=== PATIENT | male | born 1945 | race African-American/Black ===

== ENCOUNTER 2018-11-13 08:17 | Emergency (ER) | payer MEDICARE, MEDICAID | END 2018-11-13 09:49 | disposition home or self-care (01) | LOC: ERS 08:17 | DX: M25.562 Pain in left knee (principal); F41.9 Anxiety disorder, unspecified | CPT/HCPCS: 99283 ==

== ENCOUNTER 2019-11-10 19:53 | Emergency (ER) | payer MEDICARE, MEDICAID ==
[2019-11-10] MEDS ORDERED: Ketorolac Tromethamine 30 MG/ML VIAL ONE (20:49)
[2019-11-10] MEDS ORDERED: Lidocaine 1% w/Epinephrine 1:100K 20 ML VIAL ONE (20:51)
[2019-11-10] MEDS ORDERED: Morphine 4 MG/ML VIAL ONE (20:51)
--- NOTE | 2019-11-10 20:51 | RAD ---
LEFT KNEE FOUR VIEWS: History: Knee pain Comparison: Radiograph, 2018 FINDINGS: There is a large joint effusion. Intact left knee arthroplasty. No acute fracture. IMPRESSION: Large joint effusions may reflect superimposed infection. Aspiration recommended if clinically warran monique. POS: HOME
[2019-11-10 21:37] LABS: #Eosinphils 0.2 thou/uL (0.0-0.7); #Lymphocytes 2.6 thou/uL (1.20-3.40); #Monocytes 1.1 thou/uL (0.11-0.59); %Basophils 0.2 % (0.0-1.0); %Eosinophils 1.9 % (0.0-10.0); %Lymphocytes 29.3 % (21.0-51.0); %Monocytes 12.6 % (0.0-10.0); %Neutrophils 55.9 % (42.0-75.0); Hemoglobin 13.9 g/dL (14.0-18.0); Mean Corpuscular Hemoglobin 30.4 pg (27.0-31.0); Mean Platelet Volume 8.4 fL (7.4-10.4); Platelet Count 197 thou/uL (130-400); RBC Distribution Width 13.6 % (11.5-14.5); Red Blood Cell (RBC) Count 4.57 mill/uL (4.70-6.10); White Blood Cell (WBC) Count 8.9 thou/uL (4.8-10.8)
[2019-11-10 22:00] LABS: ALT (SGPT) 18 U/L (8-55); AST (SGOT) 19 U/L (5-34); Albumin 3.6 g/dL (3.4-4.8); Alkaline Phosphatase 85 U/L (40-110); Anion Gap 9 mmol/L (10-20); BUN (Urea Nitrogen) 14 mg/dL (8.4-25.7); Bilirubin, Total 0.4 mg/dL (0.2-1.2); Calc. Creatinine Clearance 0 mL/min (70-130); Calcium 8.7 mg/dL (7.8-10.44); Carbon Dioxide 26 mmol/L (23-31); Chloride 107 mmol/L (98-107); Estimated GFR-MDRD 89; Globulin 2.8 g/dL (2.4-3.5); Glucose 64 mg/dL (83-110); Potassium 3.8 mmol/L (3.5-5.1); Protein, Total 6.4 g/dL (5.8-8.1); Sodium 138 mmol/L (136-145)
[2019-11-10 22:30] LABS: RBC Count-Automated (BF) 157616 /cu.mm; WBC/Nucleated-Auto (BF) 7632 uL
[2019-11-10 22:33] LABS: BF Color Red; Body Fluid Source Synovial Fluid; Clarity Cloudy/Turbid (Clear); Tube # 1
[2019-11-10 22:37] LABS: BF Segmented Neutrophils 93 %; Cell Count Non Hematic 3 %; Lymphocytes 4 %
== END 2019-11-10 23:45 | disposition home or self-care (01) ==
LOC: ERS 19:53
DX: M25.062 Hemarthrosis, left knee (principal); I10 Essential (primary) hypertension; F41.9 Anxiety disorder, unspecified; Z79.899 Other long term (current) drug therapy
CPT/HCPCS: 20610; 36415; 80053; 85025; 85060; 85652; 86140; 87070; 87205; 89051; 89060; 96372; J1885; J2270

== ENCOUNTER 2019-11-15 19:38 | Emergency (ER) | payer MEDICARE, MEDICAID ==
[2019-11-15] MEDS ORDERED: Morphine 4 MG/ML VIAL ONE (20:14)
== END 2019-11-15 22:29 | disposition home or self-care (01) ==
LOC: ERS 19:38
DX: M25.462 Effusion, left knee (principal); I10 Essential (primary) hypertension; F41.9 Anxiety disorder, unspecified; M25.562 Pain in left knee
CPT/HCPCS: 96372; 99283; J2270

== ENCOUNTER 2019-12-05 21:00 | Emergency (ER) | payer MEDICARE, MEDICAID ==
[2019-12-05] MEDS ORDERED: Morphine 4 MG/ML VIAL ONE (22:25)
== END 2019-12-05 23:01 | disposition home or self-care (01) ==
LOC: ERS 21:00
DX: M25.462 Effusion, left knee (principal); M25.562 Pain in left knee; F41.9 Anxiety disorder, unspecified; I10 Essential (primary) hypertension; Z79.899 Other long term (current) drug therapy
CPT/HCPCS: 96372; 99283; J2270

== ENCOUNTER 2020-02-23 21:04 | Inpatient (IN) | payer MEDICARE, MEDICAID, OTHER ==
[2020-02-23 21:39] LABS: #Basophils 0.1 thou/uL (0.0-0.2); #Eosinphils 0.3 thou/uL (0.0-0.7); #Lymphocytes 2.7 thou/uL (1.20-3.40); #Monocytes 0.9 thou/uL (0.11-0.59); #Neutrophils 5.9 thou/uL (1.40-6.50); %Basophils 0.8 % (0.0-1.0); %Eosinophils 2.8 % (0.0-10.0); %Lymphocytes 27.2 % (21.0-51.0); %Monocytes 9.3 % (0.0-10.0); %Neutrophils 59.9 % (42.0-75.0); Hemoglobin 14.1 g/dL (14.0-18.0); Mean Corpuscular HGB CONC 32.5 g/dL (32.0-36.0); Mean Corpuscular Hemoglobin 30.5 pg (27.0-31.0); Mean Corpuscular Volume 93.8 fL (78.0-98.0); Mean Platelet Volume 8.6 fL (7.4-10.4); Platelet Count 212 thou/uL (130-400); RBC Distribution Width 13.8 % (11.5-14.5); Red Blood Cell (RBC) Count 4.64 mill/uL (4.70-6.10); White Blood Cell (WBC) Count 9.9 thou/uL (4.8-10.8)
--- NOTE | 2020-02-23 21:42 | RAD ---
LEFT KNEE FOUR VIEWS: Date: 02-23-2020 History: Fall, trauma, pain FINDINGS: There is a left total knee arthroplasty. No knee joint effusion, fracture, or dislocation. IMPRESSION: No acute osseous abnormality. POS: OFF
--- NOTE | 2020-02-23 21:49 | RAD ---
FOUR VIEWS RIGHT KNEE: Date: 02-23-2020 Comparison: None History: Fall, trauma, pain. FINDINGS: There is a total knee arthroplasty on the right. There is a knee joint effusion on the right. There i s osseous fragmentation with corticated margins involving the superior aspect of the patella, suggest ing prior patellar fracture. However, there may be an acute patellar fracture as well, seen on image 2 of 4, vertically oriented along the superior margin of the superior most patellar fracture. Correla tion for point tenderness in this region is required. No evidence for acute fracture involving the im aged femur, tibia or fibula. IMPRESSION: Knee joint effusion. Possible acute fracture involving the superior most aspect of the patella as det isak above. POS: OFF
--- NOTE | 2020-02-23 22:18 | CT ---
Head CT without contrast 02/23/2020: COMPARISON: 11/12/2012 HISTORY: Dizzy, falls TECHNIQUE: Axial CT imaging at 5 mm intervals from vertex through skull base without contrast FINDINGS: Imaged paranasal sinuses and mastoid air cells appear well aerated. No displaced calvarial fracture. No intracranial hemorrhage, midline shift, or mass effect. Significant periventricular, deep, and subcortical white matter hypodensity noted, evidence of small vessel disease. IMPRESSION: No acute findings.
[2020-02-23 22:39] LABS: Albumin 3.8 g/dL (3.4-4.8)
[2020-02-23 22:41] LABS: Calcium 8.6 mg/dL (7.8-10.44); Chloride 110 mmol/L (98-107); Potassium 3.8 mmol/L (3.5-5.1); Sodium 141 mmol/L (136-145)
[2020-02-23 22:42] LABS: Globulin 2.9 g/dL (2.4-3.5); Glucose 110 mg/dL (83-110); Protein, Total 6.7 g/dL (5.8-8.1)
[2020-02-23 22:44] LABS: Anion Gap 10 mmol/L (10-20); Bilirubin, Total 0.4 mg/dL (0.2-1.2); Carbon Dioxide 25 mmol/L (23-31)
[2020-02-23 22:45] LABS: Alkaline Phosphatase 93 U/L (40-110); Calc. Creatinine Clearance 0 mL/min (70-130); Estimated GFR-MDRD 64
[2020-02-23 22:46] LABS: BUN (Urea Nitrogen) 20 mg/dL (8.4-25.7)
[2020-02-23 22:47] LABS: AST (SGOT) 26 U/L (5-34)
[2020-02-23 22:48] LABS: ALT (SGPT) 38 U/L (8-55)
[2020-02-23] MEDS ORDERED: Morphine 4 MG/ML VIAL ONE (23:06)
[2020-02-24 00:24] LABS: Bilirubin Negative (Negative); Blood, Urine Negative (Negative); Clarity Clear (Clear); Glucose, Urine (Dipstick) Normal (Negative); Ketone, Urine Negative (Negative); Leukocyte Negative Leu/uL (Negative); Nitrite Negative (Negative); Protein, Urine (Dipstick) Negative (Neg-Trace); Urobilinogen Normal mg/dL (Less than 2)
[2020-02-24] MEDS ORDERED: Lorazepam 2 MG/ML VIAL ONE (00:55)
[2020-02-24 01:49] VITALS: BMI 31.6
[2020-02-24] MEDS ORDERED: traMADol HCl 50 MG TAB PO SCH (03:30)
[2020-02-24] MEDS: Morphine 2 MG/ML VIAL SLOW IVP PRN ×4 (06:10→21:17)
[2020-02-24] MEDS ORDERED: Aspirin 81 mg Enteric Coated Tablet PO SCH (09:00)
--- NOTE | 2020-02-24 09:21 | MRI ---
MRI BRAIN WITHOUT CONTRAST: HISTORY: Stroke. Dizziness and falls COMPARISON: 07/21/2012 CORRELATION: CT scan from 02/23/2020. FINDINGS: No restricted diffusion is seen. There are multiple foci of T2 prolongation in the periventricular wh ite matter, consistent with chronic small vessel ischemic disease. The ventricular size is appropriate and the basilar cisterns are patent. No evidence of acute infarct, hemorrhage, midline shift or abnormal extra-axial fluid collections is seen. There is minimal mucosal disease in the paranasal sinuses. IMPRESSION: No evidence of acute intracranial process.
[2020-02-24] MEDS: Aspirin 325 mg Enteric Coated Tablet PO SCH (09:23)
[2020-02-24] MEDS: Heparin 5,000 UNITS/ML VIAL SC SCH ×2 (09:23→21:18)
--- NOTE | 2020-02-24 10:04 | HP ---
REASON FOR ADMISSION: Difficulty with ambulation, frequent falls. HISTORY OF PRESENT ILLNESS: This is a 74-year-old male patient, who is somewhat of a poor historian. He presents to the ER after a fall and complained of right knee pain. When I see him, he tells me that he has been off balance for the last 4 months. He reports the pain in his right knee, asking for pain medication other than tramadol. He says that he sometimes feels that he is dizzy and the room is spinning around him and sometimes if he is off balance. Otherwise, he does not elaborate much about his symptoms. I did review his records and he did present to the ER in November on multiple occasions for left knee pain. It was at some point documented that he had multiple prescription for opiates. In 2012, he was documented as having polysubstance abuse. PAST MEDICAL HISTORY: Left knee replacement done in [place], [place]. Per records from a discharge summary in 2012, it seems that he has history of: 1. High blood pressure. 2. Gout. 3. Acute kidney injury. 4. Schizoaffective disorder. PAST SURGICAL HISTORY: Laparotomy for bleeding ulcers. ALLERGIES: PENICILLIN CAUSES HIM HIVES. SOCIAL HISTORY: He does smoke. He does not drink alcohol. FAMILY HISTORY: Negative for premature coronary artery disease. REVIEW OF SYSTEMS: All systems reviewed except the above mentioned, found to be negative. PHYSICAL EXAMINATION: GENERAL: Awake, alert, oriented, does not appear in distress. VITAL SIGNS: His blood pressure is 133/57, heart rate of 79, saturating on room air, temperature is 97.9. HEENT: Head is nontraumatic, normocephalic. Pupils equal, reactive. Extraocular movements are intact. Nonicteric sclerae. Well injected conjunctivae. Oral mucosa normal. Nasal mucosa normal. NECK: Supple. No adenopathy. No murmur. Thyroid is not palpable. Trachea is midline. No supraclavicular adenopathy. HEART: S1, S2 regular. No murmurs. No gallops. No friction rubs. No displacement of PMI. LUNGS: Clear to auscultation bilaterally. No wheezes, rhonchi, or crackles. ABDOMEN: Bowel sounds are positive. Nontender abdomen. No hepatosplenomegaly. EXTREMITIES: No lower extremity edema. No cyanosis. NEURO: Cranial nerves 2 through 12 within normal limits. Normal motor function. Normal sensory function. Normal reflexes. Examination of his right knee reveals slight edema, but not much different from his left knee. It is slightly tender to touch, but there is no limitation of range of motion. LABORATORY DATA: Blood work shows a WBC of , hemoglobin of 14.1, platelets of 212. Sodium 141, potassium 3.8, bicarb of 25, creatinine 1.34, baseline around 1. DIAGNOSTIC AND IMAGING DATA: CT of the brain shows no acute finding. Right knee x-ray shows knee joint effusion, possible acute fracture involving the superior most aspect of the patella. Knee x-ray shows no acute abnormality. EKG shows left bifascicular block. ASSESSMENT AND PLAN: This is a 74-year-old male patient who is presenting with being off balance. He became lightheaded, fell on the ground, called his neighbor, brought to the ER. It seems that he has episodes of multiple falls. Complains of right knee pain. He possibly has patellar fracture. Neuro. Patient will be admitted and monitored on telemetry and we will do an MRI to rule out any central etiology for his frequent falls. We will also practice permissive hypertension and he will be on full dose aspirin. For deep vein thrombosis prophylaxis, he will be on heparin subcutaneously. For his right knee, we did consult Orthopedic Surgery for further input. We will have Physical Therapy to assess him. For his pain, he will be on IV morphine on as-needed basis, also tramadol. I did discuss with him his code status, he wishes to be a full code. Job ID: [id number]
[2020-02-24 13:06] LABS: SARS-CoV-2 MS2 Positive; SARS-CoV-2 N Gene Negative; SARS-CoV-2 S Gene Negative; SARS-CoV-2 by NAA Not Detected (NotDetected); SARS-CoV-2 orf1ab Negative
--- NOTE | 2020-02-24 14:52 | PDOC.EVN ---
Event Note - Event Note Event Note: Doing ok. [place] has some knee pain[place]. Says his balance is poor. He is not sure he can stay there as he is falling frequently. He lives alone. Exam is largely unremarkable. Heart is regular. Lungs are clear. Abdomen benign. Extremities have no significant edema. Currently awaiting evaluations from physical therapy. I did communicate with Ortho and the plan is to use a hinged knee brace. No surgery indicated. Will get OT/PT consults. Discussed with case management for possible need of rehab.
--- NOTE | 2020-02-24 15:49 | CON ---
DATE OF CONSULTATION: REQUESTING PHYSICIAN: Agapito Stoll MD BRIEF HISTORY OF PRESENT ILLNESS: Mr. Bailey is a 74-year-old gentleman, who is examined in his hospital room at [facility] for evaluation of right knee pain. The patient has a past history of bilateral knee arthroplasties with the left knee replaced earlier this year and the right knee replacement done many years ago. Earlier this year, the patient has had emergency room visits for left knee pain; however, he is admitted now on the 23 of February with complaint of increasing right knee pain, ataxia, and history of multiple falls. He is unable to provide me with a single specific fall that created the right knee pain, but states that this most recent fall that he experienced have led to this hospitalization has exacerbated his right knee to the point where it is more uncomfortable. PAST MEDICAL HISTORY: Remarkable for hypertension, renal insufficiency, schizoaffective disorder, as well as gout. PAST SURGICAL HISTORY: Right total knee replacement some years ago as well as left knee replacement earlier this year. Additional surgeries include laparotomy for ulcer disease. MEDICATIONS ON ADMISSION: I will refer you to the medication reconciliation form. ALLERGIES: PENICILLIN. SOCIAL HISTORY: He is a smoker. He denies alcohol. REVIEW OF SYSTEMS: No recent fevers, chills or sweats. He denies current shortness of breath. He denies chest pain. FAMILY HISTORY: Noncontributory for this fracture. PHYSICAL EXAMINATION: VITAL SIGNS: Temperature of 97.9, heart rate of 79, respiratory rate of 16, and blood pressure 133/57. HEENT: Atraumatic and normocephalic. RESPIRATORY: Breathing is nonlabored. PELVIS: His pelvis is stable to compression. EXTREMITIES: The left lower extremity is remarkable for an atraumatic hip, ankle and foot. The knee is remarkable for a well-healed midline anterior knee incision. He is able to hold the knee in full extension with no lag and is able to flex to approximately 105 degrees. The right lower extremity is remarkable for an atraumatic hip, ankle and foot. Distal neurovascular exam is intact. His lower leg compartments are soft and nontender. He has no pain with passive stretch. The knee itself is remarkable for a mild effusion. There is no bruising noted on inspection. He is found to have a well-healed midline anterior knee incision. Palpation of the knee shows a palpable fracture of the patella with a mobile superior fragment. When asked to perform a straight leg raise, he is able to do so with just a 1- or 2-degree lag when lifting the leg up against gravity. He is able to flex his knee to 110 degrees. X-RAYS: Two view x-ray of the left knee is remarkable for a stemmed total knee arthroplasty with no evidence of radiographic loosening. X-ray of the right knee is remarkable for a non-stemmed primary total knee arthroplasty with no evidence of loosening of the femoral or tibial component. The patella is remarkable for a superior pole fracture with approximately 2 cm diastasis; however, there does appear to be some bone between the fragments and it is unclear whether this is bone formation or fracture fragments from the patella fracture. ASSESSMENT: This is a 74-year-old gentleman status post bilateral total knee arthroplasties with now a patella fracture on his left knee, age indeterminate with diastasis. PLAN: Today, I discussed with the patient that our surgical treatments for these patella fractures associated with total knee arthroplasty. I have extremely poor track record with unacceptably high risk for infection, nonunion, hardware failure. I have also discussed with the patient that there is literature showing that these knees can do quite well with nonsurgical management given a period of immobilization in extension to allow for scar tissue formation to help stabilize the quadriceps mechanism. At this time, patient is able to perform a straight leg raise, which is encouraging. We will place him in a brace and proceed with nonsurgical management. I believe all questions have been answered. Once the brace arrives, we will fit it and have it locked in extension and then institute physical therapy. Job ID: [id number]
[2020-02-25] MEDS: Morphine 2 MG/ML VIAL SLOW IVP PRN ×2 (03:00→08:00)
--- NOTE | 2020-02-25 08:50 | CON ---
NEUROLOGY CONSULTATION DATE OF CONSULTATION: 02/24/2020 REASON FOR CONSULTATION: Frequent falls, rule out CVA. HISTORY OF PRESENT ILLNESS: Mr. Chris Bailey is a 74-year-old male, who was admitted after he sustained a fall and complained of right knee pain. The patient is a poor historian and history is obtained from review of the medical records; however, per the patient, he has been off balance for 4 months because of his knee pain. He has been taking pain medication. Per the patient, he has recently started taking morphine and since then he felt more dizzy and had difficulty walking and sustained multiple falls. On review of the records, he was documented to have polysubstance abuse and there was a concern about polysubstance abuse in 2012 and he had multiple prescriptions of opiates. The patient denies focal weakness, focal paresthesias, nausea, vomiting, headache, chest pain, abdominal pain, loss of vision, loss of consciousness, problems with speech or swallowing, involuntary or abnormal body movements, or recent exposure to COVID. REVIEW OF SYSTEMS: All 14 systems were reviewed and were negative except the pertinent positives and negatives mentioned in the HPI. PAST MEDICAL HISTORY: Hypertension, gout, acute kidney injury, schizoaffective disorder. PAST SURGICAL HISTORY: Left knee replacement, laparotomy for bleeding ulcers. ALLERGIES: PENICILLIN CAUSES HIVES. SOCIAL HISTORY: The patient denies alcohol or illegal drug use. He does smoke. FAMILY HISTORY: Negative for coronary artery disease. PHYSICAL EXAMINATION: VITAL SIGNS: Blood pressure 130/60, pulse 80, respiratory rate 18. CVS: Regular rate and rhythm. CHEST: Clear. ABDOMEN: Soft. NECK: Supple. NEUROLOGIC: Mental status; the patient is alert and oriented to person, place, and time. Speech is clear. Cranial nerves 2 through 12 intact. Motor; muscle tone and bulk are normal. Strength; moving all 4 extremities equally and symmetrically. Sensory intact. Cerebellar, finger-nose testing intact. Gait deferred due to the patient's safety reason. DATA REVIEWED: I reviewed the MRI of the brain, which was negative for acute intracranial pathology. X-ray of the right knee showed joint effusion and possible acute fracture. ASSESSMENT AND PLAN: A 74-year-old male, who was consulted because of multiple falls. He does have a patellar fracture, which is contributed to fall. The patient's MRI of the brain reviewed, which is negative for acute intracranial process or stroke. Continue pain management for the right knee pain; however, his medication should be adjusted since overuse of pain medication is causing him dizziness and resulting in further falls. Neuro checks every 4 hours. Continue home medications. Continue medical management per Primary Team. No further recommendations from Neurology perspective. Thank you for the consult. Job ID: [id number] MTDD
[2020-02-25 09:22] VITALS: BP 143/81; TEMP 97.4
[2020-02-25] MEDS: Aspirin 325 mg Enteric Coated Tablet PO SCH (09:24)
[2020-02-25] MEDS: Heparin 5,000 UNITS/ML VIAL SC SCH (09:24)
--- NOTE | 2020-02-27 06:44 | DIS ---
DATE OF ADMISSION: 02/24/2020 DATE OF DISCHARGE: 02/25/2020 DISCHARGE DIAGNOSES: 1. Recurrent falls. 2. Right knee pain. 3. Right patellar fracture. 4. History of polysubstance abuse. HISTORY OF PRESENT ILLNESS: This patient is a 74-year-old male, who presented to the emergency department reporting knee pain indicating a fall injury. The patient was requesting pain medications in the emergency department. He had a negative CT, negative MRI of the brain. X-rays of both knees indicated possible patellar fracture of the right knee. HOSPITAL COURSE: The patient was admitted, given some pain medications. He was seen in consultation by Ortho, who opted not to pursue surgical intervention in favor of conservative approach with right knee brace. The next time I saw the patient, he was walking around the hospital near the front door, appeared to be doing just fine. He subsequently was seen in consultation by Neurology, who is concerned that his falls are related to substance abuse with history of prescription medication utilization that appeared to be somewhat excessive. He was felt to be stable for discharge to home as he was not going to qualify for any type of rehab. Plan was for home health with home physical therapy. Again, the patient requested pain medications, however, when researching him on the [place] [employer], it was clear the patient had very high score and had received controlled substances from 25 different providers over the past two years. I presented the patient with that information and explained to him that I would not be prescribing him any additional pain medications at this time as there were too many potential red flags. The patient reported that he had been having pain in his right knee for the past two years and that is why he was prescribed all of those medications, again casting down on whether this patellar fracture was new or old. PHYSICAL EXAMINATION: VITAL SIGNS: On the day of discharge, temperature was 97.4, pulse 74, respirations 20, O2 saturation 99% on room air, and BP was 143/81. GENERAL: He was awake and alert. HEART: Regular. LUNGS: Clear. ABDOMEN: Benign. EXTREMITIES: There was no cyanosis, clubbing, or edema. A hinged knee brace on the right lower extremity. DISPOSITION: The patient is discharged to home. ACTIVITY: As tolerated. He will wear the hinged knee brace on the right, have a regular diet and he will have home PT. MEDICATIONS: 1. Zyprexa 20 mg daily. 2. Ibuprofen 800 mg t.i.d. 3. Aspirin 325 mg a day. 4. Colchicine 0.6 b.i.d. 5. Gabapentin 300 mg t.i.d. 6. Nitroglycerin p.r.n. 7. Ambien 5 mg at bedtime p.r.n. 8. Remeron 30 mg at bedtime. 9. Ativan 1 mg b.i.d. 10. Oxcarbazepine 600 mg at bedtime. 11. Amlodipine 1 p.o. daily. 12. Atorvastatin 40 mg daily. 13. Enalapril 20 mg b.i.d. 14. Tamsulosin 0.4 mg daily. He is encouraged to discontinue the clonazepam as it is duplicative and certainly could be contributing to his fall issues. He is to have [facility] and he is to follow up with Dr. Sunshine with a note indicating that the patient should be considered for weaning of multiple sedating medications, potentially contributing to his falls. He can follow up with Dr. Gtz as needed. TIME SPENT: Time spent in discharge activities was greater than 40 minutes. The patient was admitted inpatient. It seems as though this was based on information from the patient that may have been somewhat misleading at that time based on the acuity of his injury. Job ID: [id number] [facility]
--- NOTE | 2020-02-28 12:21 | EKG ---
Test Reason : Blood Pressure : / mmHG Vent. Rate : 082 BPM Atrial Rate : 082 BPM P-R Int : 140 ms QRS Dur : 132 ms QT Int : 398 ms P-R-T Axes : 054 134 034 degrees QTc Int : 464 ms Normal sinus rhythm Right bundle branch block , plus right ventricular hypertrophy Left posterior fascicular block Bifascicular block Abnormal ECG Confirmed by TALI ANGEL ([id number]), editor farm journal MAVIS COKER ([id number]) on 02/28/2020 12:21:34 PM Referred By: Confirmed By:TALI ANGEL
== END 2020-02-25 10:21 | disposition home or self-care (01) | DRG 563 ==
LOC: ERS 21:04 → 2NO 23:55 → UNDOADMIN 02-24 → 2NO 02-24 → T4-B 02-24 18:09 → UNDODISIN 02-25 10:21
PROVIDERS: ADMIT Internal Medicine; ATTEND Internal Medicine
DX: S82.001A Unspecified fracture of right patella, initial encounter for closed fracture (principal); Z20.828 Contact with and (suspected) exposure to other viral communicable diseases; W19.XXXA Unspecified fall, initial encounter; F25.9 Schizoaffective disorder, unspecified; M10.9 Gout, unspecified; N40.0 Benign prostatic hyperplasia without lower urinary tract symptoms; F41.9 Anxiety disorder, unspecified; F17.210 Nicotine dependence, cigarettes, uncomplicated; M25.461 Effusion, right knee; Z96.653 Presence of artificial knee joint, bilateral; I10 Essential (primary) hypertension; Z88.0 Allergy status to penicillin
CPT/HCPCS: 36415; 70450; 70551; 80053; 81003; 84484; 85025; 87635; 93005; 96361; 96374; 96375; J1644; J2060; J2270; L1832; U0003

== ENCOUNTER 2020-03-25 16:42 | Emergency (ER) | payer MEDICARE, MEDICAID ==
--- NOTE | 2020-03-25 18:04 | RAD ---
PORTABLE CHEST: 03/25/20 HISTORY: Elevated blood pressure. COMPARISON: 12/11/12 study. Heart size and mediastinum are within normal limits. The lungs are clear of infiltrates. No significa nt bony findings. IMPRESSION: No active intrathoracic disease. POS: MONI
[2020-03-25 18:20] LABS: #Eosinphils 0.2 thou/uL (0.0-0.7); #Lymphocytes 1.5 thou/uL (1.20-3.40); #Monocytes 0.9 thou/uL (0.11-0.59); #Neutrophils 5.3 thou/uL (1.40-6.50); %Basophils 0.4 % (0.0-1.0); %Eosinophils 2.9 % (0.0-10.0); %Lymphocytes 19.3 % (21.0-51.0); %Monocytes 10.6 % (0.0-10.0); %Neutrophils 66.8 % (42.0-75.0); Hemoglobin 14.3 g/dL (14.0-18.0); Mean Corpuscular HGB CONC 32.2 g/dL (32.0-36.0); Mean Corpuscular Volume 92.9 fL (78.0-98.0); Mean Platelet Volume 8.4 fL (7.4-10.4); Platelet Count 221 thou/uL (130-400); RBC Distribution Width 13.4 % (11.5-14.5); Red Blood Cell (RBC) Count 4.78 mill/uL (4.70-6.10)
[2020-03-25 18:39] LABS: ALT (SGPT) 31 U/L (8-55); AST (SGOT) 29 U/L (5-34); Albumin 3.8 g/dL (3.4-4.8); Alkaline Phosphatase 76 U/L (40-110); Anion Gap 14 mmol/L (10-20); BUN (Urea Nitrogen) 18 mg/dL (8.4-25.7); Bilirubin, Total 0.4 mg/dL (0.2-1.2); CK (CPK) 210 U/L (30-200); Calc. Creatinine Clearance 0 mL/min (70-130); Calcium 9.1 mg/dL (7.8-10.44); Carbon Dioxide 20 mmol/L (23-31); Chloride 111 mmol/L (98-107); Estimated GFR-MDRD 74; Globulin 3.1 g/dL (2.4-3.5); Glucose 111 mg/dL (83-110); Lipase 20 U/L (8-78); Potassium 3.4 mmol/L (3.5-5.1); Protein, Total 6.9 g/dL (5.8-8.1); Sodium 142 mmol/L (136-145)
--- NOTE | 2020-04-17 13:08 | EKG ---
Test Reason : Blood Pressure : / mmHG Vent. Rate : 086 BPM Atrial Rate : 086 BPM P-R Int : 140 ms QRS Dur : 132 ms QT Int : 396 ms P-R-T Axes : 057 146 025 degrees QTc Int : 473 ms Normal sinus rhythm Possible Left atrial enlargement Right bundle branch block Abnormal ECG No change from 02/23/2020 Confirmed by RONNIE WILKINS DO ([id number]), video news editor MAVIS COKER ([id number]) on 04/17/2020 1:07:54 PM Referred By: Confirmed By:RONNIE WILKINS DO
== END 2020-03-25 19:55 | disposition home or self-care (01) ==
LOC: ERS 16:42
DX: R42 Dizziness and giddiness (principal); I10 Essential (primary) hypertension; N40.0 Benign prostatic hyperplasia without lower urinary tract symptoms; F41.9 Anxiety disorder, unspecified; F17.210 Nicotine dependence, cigarettes, uncomplicated; Z76.0 Encounter for issue of repeat prescription
CPT/HCPCS: 36415; 71045; 80053; 82550; 83690; 84484; 85025; 93005

== ENCOUNTER 2020-06-22 21:58 | Emergency (ER) | payer MEDICARE, MEDICAID ==
[~2020-06-22 21:58] MED LIST: Iopamidol-370 76% 500 ML 1 ML ONE
--- NOTE | 2020-06-22 22:28 | RAD ---
Portable frontal chest radiograph: 06/22/2020 COMPARISON: 03/25/2020 HISTORY: Cough with shortness of breath FINDINGS: There is stable prominence of the cardiac silhouette. No pneumothorax, focal consolidation, or alveolar edema. Mild linear density noted in the right lung base which could represent volume loss, vascular structures, or mild infiltrate. IMPRESSION: Mild increased linear density in the right lung base. No focal consolidation or alveolar edema.
[2020-06-22] MEDS ORDERED: Morphine 4 MG/ML VIAL ONE (22:42)
[2020-06-22 22:53] LABS: Hemoglobin 14.5 g/dL (14.0-18.0); Mean Corpuscular HGB CONC 32.7 g/dL (32.0-36.0); Mean Corpuscular Hemoglobin 29.7 pg (27.0-31.0); Mean Corpuscular Volume 90.9 fL (78.0-98.0); Mean Platelet Volume 8.3 fL (7.4-10.4); Platelet Count 247 thou/uL (130-400); RBC Distribution Width 13.4 % (11.5-14.5); White Blood Cell (WBC) Count 7.9 thou/uL (4.8-10.8)
[2020-06-22 23:13] LABS: Band 1 % (5-11); Eosinophils 3 % (0-10); Lymphocytes 32 % (21-51); MDiff Complete? YES; Monocytes 14 % (0-10); Neutrophil 48 % (42-75); Platelet Morphology Comment Appears Adequate; RBC Morphology Normal; Reactive Lymphocytes 2 % (0-10)
[2020-06-22 23:15] LABS: ALT (SGPT) 13 U/L (8-55); AST (SGOT) 19 U/L (5-34); Albumin 3.7 g/dL (3.4-4.8); Alkaline Phosphatase 90 U/L (40-110); Anion Gap 13 mmol/L (10-20); BUN (Urea Nitrogen) 21 mg/dL (8.4-25.7); Bilirubin, Total 0.4 mg/dL (0.2-1.2); Calc. Creatinine Clearance 0 mL/min (70-130); Calcium 8.5 mg/dL (7.8-10.44); Carbon Dioxide 24 mmol/L (23-31); Chloride 110 mmol/L (98-107); Globulin 2.8 g/dL (2.4-3.5); Glucose 92 mg/dL (83-110); Potassium 3.9 mmol/L (3.5-5.1); Protein, Total 6.5 g/dL (5.8-8.1); Sodium 143 mmol/L (136-145)
[2020-06-23] MEDS ORDERED: Ketorolac Tromethamine 30 MG/ML VIAL ONE (01:49)
[2020-06-23 06:18] LABS: SARS-CoV-2 MS2 Positive; SARS-CoV-2 N Gene Negative; SARS-CoV-2 S Gene Negative; SARS-CoV-2 by NAA Not Detected (NotDetected); SARS-CoV-2 orf1ab Negative
[2020-06-23 06:50] LABS: Troponin I 0.013 ng/mL (< 0.028)
--- NOTE | 2020-06-23 07:25 | CT ---
PRELIMINARY REPORT/[facility]/EMERGENCY AFTER HOURS PROCEDURE: EXAM: CTA Chest with Intravenous Contrast CLINICAL HISTORY: 75-year-old male with history of hypertension presenting with a cough some shortnes s of breath and chest pain with his cough. Patient is noting some mild chest pain with the cough as well. Patient denies any history of cardiac disease but does endorse a history of hypertension. TECHNIQUE: Axial CTA images of the chest with intravenous contrast. Three-dimensional MIP/volume rend ered reformations were performed. CONTRAST: With; ISOVUE 370; 60mL COMPARISON: None provided. FINDINGS: PULMONARY ARTERIES There is no intraluminal filling defect suspicious for PE. AORTA No thoracic aortic aneurysm or dissection. LUNGS Emphysema. No pulmonary masses or concerning pulmonary nodules. No significant airspace disease identified. PLEURAL SPACES No pleural effusion. No pneumothorax. HEART AND MEDIASTINUM Heart appears mildly enlarged. No pericardial effusion. LYMPH NODES No lymphadenopathy. BONES No focal osseous abnormality or acute fracture. CHEST WALL AND UPPER ABDOMEN Numerous hepatic cysts are present. No solid liver masses identified. Cy sts noted within the right kidney. The visible upper abdomen is otherwise unremarkable. No focal abnormalities of the chest wall. IMPRESSION: No PE visualized. Emphysema. See above for additional findings. ELECTRONICALLY SIGNED BY: Dwayne Marquis DO Jun 23, 2020 12:32:42 AM PAIL TESTER FINAL REPORT CT ANGIOGRAM OF THE CHEST: HISTORY: Shortness of breath. Hypertension. Cough. COMPARISON: None. TECHNIQUE: CT angiogram of the chest is performed in the axial plane. Three-dimensional reformatted images are s ubmitted for interpretation FINDINGS: Mediastinum: No mass, lymphadenopathy or hematoma. Heart: Normal size. No significant pericardial fluid. Aorta: No aneurysm or dissection . Upper solid abdominal viscera: No abnormality enhancement. Multiple hepatic cysts are identified. Trachea and central bronchi: Patent. Pleural spaces: No effusion. Lung parenchyma: No masses or consolidation. Scattered scarring and atelectasis. Pneumothorax: None. Osseous structures: No lytic or blastic lesions. Pulmonary arteries: Adequate contrast opacification pulmonary arterial system to the level of lobar a rteries. Evaluation of the segmental and subsegmental arteries is somewhat limited due to patient motion and timing of contrast bolus. No filling defect to suggest pulmonary embolism. IMPRESSION: 1. This report is in agreement with initial report by [facility]. 2. No evidence of pulmonary artery embolism to the level of the lobar arteries. Transcribed Date/Time: 06/23/2020 7:46 AM
--- NOTE | 2020-06-26 11:16 | EKG ---
Test Reason : Blood Pressure : / mmHG Vent. Rate : 087 BPM Atrial Rate : 087 BPM P-R Int : 140 ms QRS Dur : 140 ms QT Int : 404 ms P-R-T Axes : 065 121 048 degrees QTc Int : 486 ms Normal sinus rhythm Right bundle branch block Left posterior fascicular block Bifascicular block Abnormal ECG No change from 02/2020 Confirmed by TALI ANGEL ([id number]), food editor MAVIS COKER ([id number]) on 06/26/2020 11:15:59 AM Referred By: Confirmed By:TALI ANGEL
== END 2020-06-23 02:42 | disposition home or self-care (01) ==
LOC: ERS 21:58
DX: R07.9 Chest pain, unspecified (principal); R05 Cough; R06.02 Shortness of breath; I10 Essential (primary) hypertension; N40.0 Benign prostatic hyperplasia without lower urinary tract symptoms; F17.210 Nicotine dependence, cigarettes, uncomplicated; Z20.822 Contact with and (suspected) exposure to COVID-19; Z79.899 Other long term (current) drug therapy
CPT/HCPCS: 71045; 71275; 80053; 83605; 83880; 84484; 85025; 85379; 93005; U0003; U0005; 87635; 96374; 96375; J1885; J2270; Q9967

== ENCOUNTER 2022-06-28 00:40 | Observation (INO) | payer OTHER ==
[2022-06-28] MEDS ORDERED: Ketorolac Tromethamine 30 MG/ML VIAL ONE (01:37)
[2022-06-28] MEDS ORDERED: Ondansetron PF 4 MG/2 ML Vial ONE (03:02)
[2022-06-28] MEDS ORDERED: Morphine 4 MG/ML VIAL ONE ×4 (03:02→16:03)
[2022-06-28 04:21] LABS: Troponin I Less than 0.010 ng/mL (< 0.028)
[2022-06-28 04:22] LABS: Anion Gap 12 mmol/L (10-20); BUN (Urea Nitrogen) 14 mg/dL (8.4-25.7); Calc. Creatinine Clearance 0 mL/min (70-130); Calcium 9.1 mg/dL (7.6-10.4); Carbon Dioxide 23 mmol/L (23-31); Chloride 107 mmol/L (98-107); Estimated GFR 87; Glucose 100 mg/dL (83-110); Potassium 3.7 mmol/L (3.5-5.1); Sodium 138 mmol/L (136-145)
[2022-06-28 04:23] LABS: AST (SGOT) 20 U/L (5-34); Albumin 3.7 g/dL (3.4-4.8); Alkaline Phosphatase 64 U/L (40-110); Bilirubin, Total 0.7 mg/dL (0.2-1.2); Globulin 3.2 g/dL (2.4-3.5); Protein, Total 6.9 g/dL (5.8-8.1)
[2022-06-28 04:24] LABS: ALT (SGPT) 16 U/L (8-55); Lipase 8 U/L (8-78)
[2022-06-28 04:26] LABS: #Basophils 0.1 thou/uL (0.0-0.2); #Eosinphils 0.2 thou/uL (0.0-0.7); #Monocytes 0.9 thou/uL (0.11-0.59); #Neutrophils 6.9 thou/uL (1.40-6.50); %Basophils 0.6 % (0.0-1.0); %Eosinophils 2.1 % (0.0-10.0); %Lymphocytes 19.6 % (21.0-51.0); %Monocytes 9.4 % (0.0-10.0); %Neutrophils 68.4 % (42.0-75.0); Hemoglobin 15.1 g/dL (14.0-18.0); Mean Corpuscular HGB CONC 33.4 g/dL (32.0-36.0); Mean Corpuscular Hemoglobin 29.9 pg (27.0-31.0); Mean Corpuscular Volume 89.3 fl (78.0-98.0); Mean Platelet Volume 8.3 fL (7.4-10.4); Platelet Count 266 10x3/uL (130-400); RBC Distribution Width 14.4 % (11.5-14.5); Red Blood Cell (RBC) Count 5.05 mill/uL (4.70-6.10)
[2022-06-28] MEDS ORDERED: Acetaminophen 650 MG Suppository PR PRN (04:50)
[2022-06-28] MEDS ORDERED: Ondansetron PF 4 MG/2 ML Vial IVP PRN (04:50)
[2022-06-28] MEDS ORDERED: Ondansetron ODT 4 MG TAB PO PRN (04:50)
[2022-06-28] MEDS ORDERED: Nitroglycerin 0.4 MG TAB (25 Tab Bottle) SL PRN (04:50)
[2022-06-28] MEDS ORDERED: Acetaminophen 325 MG TAB PO PRN (04:50)
[2022-06-28] MEDS: Morphine 4 MG/ML VIAL SLOW IVP PRN ×3 (06:40→16:07)
[2022-06-28 07:22] LABS: Troponin I Less than 0.010 ng/mL (< 0.028)
[2022-06-28 08:04] VITALS: BP 137/79; TEMP 98.4
[2022-06-28 08:36] VITALS: BMI 31.0
[2022-06-28] MEDS ORDERED: Aspirin Chewable 81 MG TAB PO SCH (09:00)
[2022-06-28 09:45] LABS: Troponin I Less than 0.010 ng/mL (< 0.028)
[2022-06-28] MEDS ORDERED: Aspirin 81 mg Enteric Coated Tablet ONE (10:01)
[2022-06-28 10:32] LABS: Magnesium 1.6 mg/dL (1.6-2.6)
[2022-06-28] MEDS ORDERED: Nitroglycerin 0.4 MG TAB (25 Tab Bottle) SL SCH (11:00)
[2022-06-28] MEDS ORDERED: Magnesium 2 GM/50 ML(in water) 2 GM in Premix Bag 1 BAG IVPB SCH (11:00)
[2022-06-28] MEDS ORDERED: Regadenoson 0.4 MG/5 ML SYRINGE ONE (11:05)
[2022-06-28] MEDS ORDERED: Ketorolac Tromethamine 30 MG/ML VIAL IVP SCH (12:00)
[2022-06-28] MEDS ORDERED: Gabapentin 300 MG CAP PO SCH (15:00)
[2022-06-28] MEDS ORDERED: busPIRone HCl 10 MG TAB PO SCH (15:00)
[2022-06-28] MEDS ORDERED: Diazepam 5 MG TAB PO SCH (21:00)
[2022-06-29] MEDS ORDERED: Pregabalin 75 MG CAP PO SCH (09:00)
[2022-06-29] MEDS ORDERED: Tamsulosin HCl 0.4 MG CAP PO SCH (09:00)
[2022-06-29] MEDS ORDERED: Amlodipine 10 MG TAB PO SCH (09:00)
[2022-06-29] MEDS ORDERED: Metoprolol Tartrate 50 MG TAB PO SCH (09:00)
[2022-06-29] MEDS ORDERED: Citalopram 20 MG TAB PO SCH (09:00)
== END 2022-06-28 16:14 | disposition short-term general hospital (02) ==
LOC: ERS 00:40 → ERHOLD 04:14
PROVIDERS: ADMIT Student in an Organized Health Care Education/Training Program; ATTEND Student in an Organized Health Care Education/Training Program
DX: R07.89 Other chest pain (principal); R10.13 Epigastric pain; I11.9 Hypertensive heart disease without heart failure; G62.9 Polyneuropathy, unspecified; F32.A Depression, unspecified; N40.0 Benign prostatic hyperplasia without lower urinary tract symptoms; M25.561 Pain in right knee; J98.11 Atelectasis; F17.210 Nicotine dependence, cigarettes, uncomplicated; F12.10 Cannabis abuse, uncomplicated; I45.10 Unspecified right bundle-branch block; Z87.11 Personal history of peptic ulcer disease; Z79.82 Long term (current) use of aspirin; Z79.899 Other long term (current) drug therapy; Z88.0 Allergy status to penicillin
CPT/HCPCS: 71045; 78452; 83690; 83735; 83880; 84484 ×2; 93005; 93017; 96374; 96375; 99285; A9500; 80053; 84443; 85025; J1650; J1885; J2270; J2405; J2785

== ENCOUNTER 2022-08-17 16:52 | Emergency (ER) | payer OTHER ==
[2022-08-17] MEDS ORDERED: HYDROcodone/Acetaminophen 5/325 mg Tablet ONE (18:43)
[2022-08-17] MEDS ORDERED: Bacitracin 1 PK ONE (18:43)
[2022-08-17] MEDS ORDERED: Ketorolac Tromethamine 30 MG/ML VIAL ONE (18:44)
== END 2022-08-17 18:53 | disposition home or self-care (01) ==
LOC: ERS 16:52
DX: M25.552 Pain in left hip (principal); M25.561 Pain in right knee; M25.562 Pain in left knee; M25.532 Pain in left wrist; W01.0XXA Fall on same level from slipping, tripping and stumbling without subsequent striking against object, initial encounter
CPT/HCPCS: 96372; J1885

== ENCOUNTER 2022-08-22 22:50 | Emergency (ER) | payer OTHER ==
[2022-08-22 23:39] LABS: #Basophils 0.1 thou/uL (0.0-0.2); #Eosinphils 0.3 thou/uL (0.0-0.7); #Lymphocytes 2.2 thou/uL (1.20-3.40); #Monocytes 0.8 thou/uL (0.11-0.59); #Neutrophils 6.3 thou/uL (1.40-6.50); %Basophils 0.8 % (0.0-1.0); %Eosinophils 3.1 % (0.0-10.0); %Lymphocytes 22.4 % (21.0-51.0); %Monocytes 8.7 % (0.0-10.0); Hemoglobin 15.3 g/dL (14.0-18.0); Mean Corpuscular HGB CONC 32.2 g/dL (32.0-36.0); Mean Corpuscular Hemoglobin 29.9 pg (27.0-31.0); Mean Corpuscular Volume 92.8 fl (78.0-98.0); Mean Platelet Volume 8.2 fL (7.4-10.4); Platelet Count 234 10x3/uL (130-400); RBC Distribution Width 13.9 % (11.5-14.5); Red Blood Cell (RBC) Count 5.13 mill/uL (4.70-6.10); White Blood Cell (WBC) Count 9.7 10x3/uL (4.8-10.8)
[2022-08-23] LABS: Acetaminophen Less than 10.0 mcg/mL (10.0-30.0); Alcohol Less than 10 mg/dL (Less than 10); Salicylate Less than 8.0 mg/dL (15.0-30.0)
[2022-08-23 00:13] LABS: Bacteria/HPF None Seen HPF (None Seen); Bilirubin Negative (Negative); Blood, Urine 1+ (Negative); Clarity Clear (Clear); Glucose, Urine (Dipstick) Normal (Negative); Ketone, Urine Negative (Negative); Leukocyte Negative Leu/uL (Negative); Nitrite Negative (Negative); Protein, Urine (Dipstick) 20 mg/dL (Neg-Trace); Specific Gravity, Urine 1.026 (1.002-1.036); Squamous Epithelial None Seen HPF (0-3); Urobilinogen Normal mg/dL (Less than 2)
[2022-08-23 00:19] LABS: Amphetamine Not Detected (NotDetected); Barbiturates Screen Not Detected (NotDetected); Benzodiazepine Screen Not Detected (NotDetected); Cocaine Metabolite Screen Detected (NotDetected); Methadone Not Detected (NotDetected); Methamphetamine Not Detected (NotDetected); Opiate Screen Not Detected (NotDetected); Oxycodone Screen Not Detected (NotDetected); Phencyclidine (PCP) Not Detected (NotDetected); THC/Cannabinoid Screen Detected (NotDetected); Tricyclic Screen Not Detected (NotDetected)
[2022-08-23 04:38] LABS: AST (SGOT) 36 U/L (5-34)
[2022-08-23 04:53] LABS: Albumin 3.7 g/dL (3.4-4.8)
[2022-08-23 04:54] LABS: Chloride 110 mmol/L (98-107); Potassium 3.6 mmol/L (3.5-5.1); Sodium 142 mmol/L (136-145)
[2022-08-23 04:55] LABS: Glucose 98 mg/dL (83-110)
[2022-08-23 04:56] LABS: Globulin 2.7 g/dL (2.4-3.5); Protein, Total 6.4 g/dL (5.8-8.1)
[2022-08-23 04:57] LABS: Anion Gap 14 mmol/L (10-20); Bilirubin, Total 0.3 mg/dL (0.2-1.2); Carbon Dioxide 22 mmol/L (23-31)
[2022-08-23 04:58] LABS: Alkaline Phosphatase 73 U/L (40-110)
[2022-08-23 04:59] LABS: Calc. Creatinine Clearance 0 mL/min (70-130); Estimated GFR 85
[2022-08-23 05:00] LABS: BUN (Urea Nitrogen) 14 mg/dL (8.4-25.7)
[2022-08-23 05:01] LABS: ALT (SGPT) 12 U/L (8-55)
[2022-08-23] MEDS ORDERED: clonazePAM 1 MG TAB ONE (10:53)
[2022-08-23] MEDS ORDERED: Lisinopril 10 MG TAB PO SCH (11:30)
[2022-08-23] MEDS ORDERED: Tamsulosin HCl 0.4 MG CAP PO SCH (11:30)
[2022-08-23] MEDS ORDERED: Lisinopril 10 MG TAB ONE (11:40)
== END 2022-08-23 12:18 ==
LOC: ERS 22:50
DX: T40.422A Poisoning by tramadol, intentional self-harm, initial encounter (principal); I10 Essential (primary) hypertension; E78.5 Hyperlipidemia, unspecified; F17.210 Nicotine dependence, cigarettes, uncomplicated
CPT/HCPCS: 36415; 70450; 80053; 80306; 80307; 81003; 81015; 82550; 84443; 85025; 93005

== ENCOUNTER 2022-10-10 03:33 | Emergency (ER) | payer OTHER ==
[2022-10-10] MEDS ORDERED: Lorazepam 1 MG TAB ONE (03:50)
[2022-10-10 04:59] LABS: Hemoglobin 15.3 g/dL (14.0-18.0); Red Blood Cell (RBC) Count 4.97 mill/uL (4.70-6.10); White Blood Cell (WBC) Count 9.7 10x3/uL (4.8-10.8)
[2022-10-10 05:00] LABS: #Eosinphils 0.1 thou/uL (0.0-0.7); #Lymphocytes 1.6 thou/uL (1.20-3.40); %Basophils 0.4 % (0.0-1.0); %Eosinophils 0.6 % (0.0-10.0); %Lymphocytes 16.6 % (21.0-51.0); %Monocytes 10.4 % (0.0-10.0); %Neutrophils 71.9 % (42.0-75.0); Mean Corpuscular HGB CONC 33.8 g/dL (32.0-36.0); Mean Corpuscular Hemoglobin 30.8 pg (27.0-31.0); Mean Corpuscular Volume 91.1 fl (78.0-98.0); Mean Platelet Volume 8.8 fL (7.4-10.4); Platelet Count 203 10x3/uL (130-400); RBC Distribution Width 13.9 % (11.5-14.5)
[2022-10-10 05:21] LABS: Acetaminophen Less than 10.0 mcg/mL (10.0-30.0); Alcohol Less than 10 mg/dL (Less than 10); Salicylate Less than 8.0 mg/dL (15.0-30.0)
[2022-10-10 05:22] LABS: ALT (SGPT) 8 U/L (8-55); AST (SGOT) 15 U/L (5-34); Albumin 3.9 g/dL (3.4-4.8); Alkaline Phosphatase 64 U/L (40-110); Anion Gap 15 mmol/L (10-20); BUN (Urea Nitrogen) 24 mg/dL (8.4-25.7); Bilirubin, Total 0.6 mg/dL (0.2-1.2); CK (CPK) 118 U/L (30-200); Calc. Creatinine Clearance 0 mL/min (70-130); Calcium 9.2 mg/dL (7.8-10.44); Carbon Dioxide 20 mmol/L (23-31); Chloride 112 mmol/L (98-107); Estimated GFR 40; Globulin 2.9 g/dL (2.4-3.5); Glucose 105 mg/dL (83-110); Potassium 3.7 mmol/L (3.5-5.1); Protein, Total 6.8 g/dL (5.8-8.1); Sodium 143 mmol/L (136-145)
[2022-10-10 05:37] LABS: Amphetamine Not Detected (NotDetected); Barbiturates Screen Not Detected (NotDetected); Benzodiazepine Screen Not Detected (NotDetected); Cocaine Metabolite Screen Detected (NotDetected); Methadone Not Detected (NotDetected); Methamphetamine Not Detected (NotDetected); Opiate Screen Not Detected (NotDetected); Oxycodone Screen Not Detected (NotDetected); Phencyclidine (PCP) Not Detected (NotDetected); THC/Cannabinoid Screen Not Detected (NotDetected); Tricyclic Screen Not Detected (NotDetected)
[2022-10-10] MEDS ORDERED: Acetaminophen 500 MG TAB ONE (06:07)
[2022-10-10 06:44] LABS: Bacteria/HPF None Seen HPF (None Seen); Bilirubin Negative (Negative); Blood, Urine Negative (Negative); Clarity Clear (Clear); Glucose, Urine (Dipstick) Normal (Negative); Ketone, Urine 10 mg/dL (Negative); Leukocyte Negative Leu/uL (Negative); Nitrite Negative (Negative); Protein, Urine (Dipstick) 30 mg/dL (Neg-Trace); RBC/HPF 0-3 HPF (0-3); Specific Gravity, Urine 1.028 (1.002-1.036); Squamous Epithelial None Seen HPF (0-3); Urobilinogen Normal mg/dL (Less than 2); WBC/HPF 0-3 HPF (0-3); pH, Urine 5.5 (5.0-9.0)
[2022-10-10 07:10] LABS: Unclassified Crystals Rare HPF (None Seen)
[2022-10-10 07:16] LABS: Calcium Oxalate Crystals 3+ HPF (None Seen)
[2022-10-10] MEDS ORDERED: Ibuprofen 200 MG TAB ONE ×2 (08:05→17:31)
[2022-10-10] MEDS ORDERED: hydrOXYzine Pamoate 25 mg Capsule ONE (08:08)
[2022-10-10] MEDS ORDERED: hydrOXYzine 25 MG TAB ONE (08:08)
[2022-10-10 09:22] LABS: Troponin I 0.011 ng/mL (< 0.028)
[2022-10-10] MEDS ORDERED: Acetaminophen 325 MG TAB ONE (13:01)
== END 2022-10-10 18:16 ==
LOC: ERS 03:33
DX: R45.851 Suicidal ideations (principal); I10 Essential (primary) hypertension; E78.5 Hyperlipidemia, unspecified; F17.210 Nicotine dependence, cigarettes, uncomplicated
CPT/HCPCS: 36415; 71045; 80053; 80306; 80307; 81003; 81015; 82550; 83880; 84443; 84484; 85025; 93005; Q0177